=== PATIENT | female | born 1975 | race Caucasian/White ===

== ENCOUNTER 2019-03-30 03:06 | Emergency (ER) | payer BC ==
[2019-03-30 04:18] LABS: Absolute Lymphocytes (CBC) 3.6 K/uL (0.7-4.9); Basophils % 0.4 % (0-1.3); Hematocrit 40.6 % (36.0-45.0); MPV 8.7 fL (7.6-11.3)
[2019-03-30] MEDS ORDERED: MEPERIDINE HCL 25 MG/0.5 ML ONE (04:26)
[2019-03-30] MEDS ORDERED: dexAMETHasone 10 MG/ML VIAL ONE (04:26)
[2019-03-30 04:30] LABS: Albumin 3.8 g/dL (3.4-5.0); Bilirubin Direct 0.1 mg/dL (0-0.2); Bilirubin Total 0.4 mg/dL (0.2-1.0); Potassium 3.4 mmol/L (3.5-5.1); Protein, Total 8.2 g/dL (6.4-8.2)
[2019-03-30] MEDS ORDERED: ONDANSETRON 4 MG/2 ML VIAL ONE (04:58)
--- NOTE | 2019-03-30 06:05 | ER ---
Nurse's Notes [facility] Name: Pauline Lowe Age: 44 yrs Sex: Female : 1975 Arrival Date: 03/30/2019 Time: 03:09 Bed 7 Private MD: Diagnosis: Radiculopathy, lumbar region Presentation: 03/30 03:22 Presenting complaint: Patient states: L hip pain that radiates to LLQ x 2 days. Reports aa1 she recently had an MRI which showed some disc degeneration with bulging and herniation and she was informed to see pain management but they have not been able to see her yet. Also states, "I also have a history of kidney problems and ovarian cysts so I'm not sure of there's more to it than that.". Transition of care: patient was not received from another setting of care. Onset of symptoms was March 27, 2019. Risk Assessment: Do you want to hurt yourself or someone else? Patient reports no desire to harm self or others. Initial Sepsis Screen: Does the patient meet any 2 criteria? No. Patient's initial sepsis screen is negative. Does the patient have a suspected source of infection? No. Patient's initial sepsis screen is negative. Care prior to arrival: None. 03:22 Method Of Arrival: Ambulatory aa1 03:22 Acuity: HEDY 3 aa1 Triage Assessment: 03:27 General: Appears in no apparent distress. uncomfortable, Behavior is calm, cooperative, aa1 appropriate for age. Historical: - Allergies: 03:27 Stadol; aa1 - Home Meds: 03:27 Humira subcutaneous subcutaneous [Active]; Methotrexate Sodium Oral [Active]; aa1 Metoprolol Tartrate Oral [Active]; Wellbutrin Oral [Active]; Metformin Oral [Active]; Hydrochlorothiazide Oral [Active]; pantoprazole oral oral [Active]; - PMHx: 03:27 Diabetes - NIDDM; High Cholesterol; Hypertension; Rheumatoid Arthritis; GERD; Ovarian aa1 cyst; bulging and herniated discs in back; - PSHx: 03:27 Tubal ligation; aa1 - Immunization history:: Flu vaccine is not up to date. - Social history:: Smoking status: Patient uses tobacco products, smokes one-half pack cigarettes per day. - Ebola Screening: : No symptoms or risks identified at this time No symptoms or risks identified at this time. - Family history:: not pertinent. - Hospitalizations: : No recent hospitalization is reported. Screenin:25 Abuse screen: Denies threats or abuse. Denies injuries from another. Nutritional lp1 screening: No deficits noted. Tuberculosis screening: No symptoms or risk factors identified. Fall Risk None identified. Assessment: 03:24 General: Appears in no apparent distress. Behavior is calm, cooperative, appropriate lp1 for age. Pain: Complains of pain in left hip Pain currently is 8 out of 10 on a pain scale. Quality of pain is described as sharp. Pain: Aggravated by increased activity. Neuro: Level of Consciousness is awake, alert, obeys commands, Oriented to person, place, time, situation. Cardiovascular: Patient's skin is warm and dry. Respiratory: Respiratory effort is even, unlabored. GI: No deficits noted. : No deficits noted. EENT: No deficits noted. Derm: Skin is pink, warm \\T\\ dry. Musculoskeletal: Circulation, motion, and sensation intact. Reports pain in left hip. 04:23 Reassessment: Patient and/or family updated on plan of care and expected duration. Pain ea level reassessed. Patient is alert, oriented x 3, equal unlabored respirations, skin warm/dry/pink. Pt taken to CT. 05:02 Reassessment: Patient and/or family updated on plan of care and expected duration. Pain ea level reassessed. Patient is alert, oriented x 3, equal unlabored respirations, skin warm/dry/pink. Pt complaining of nausea, provider notified, medication order obtained. Pt verbalized her pain has decreased. 06:12 Reassessment: Patient and/or family updated on plan of care and expected duration. Pain ea level reassessed. Patient is alert, oriented x 3, equal unlabored respirations, skin warm/dry/pink. Discharge instruction given to patient, verbalized the understanding of instruction. Pt left ED ambulatory accompanied by family. Pt tolerating well. Vital Signs: 03:27 BP 152 / 100; Pulse 86; Resp 18; Temp 97.6; Pulse Ox 100% on R/A; Weight 65.32 kg; aa1 Height 5 ft. 5 in. (165.10 cm) (R); Pain 8/10; 05:02 BP 140 / 90; Pulse 80; Resp 18; Pulse Ox 100% ; ea 03:27 Body Mass Index 23.96 (65.32 kg, 165.10 cm) aa1 ED Course: 03:09 Patient arrived in ED. ds1 03:21 Shaheed Demarco MD is Attending Physician. rn 03:24 Triage completed. aa1 03:25 Patient has correct armband on for positive identification. lp1 03:27 Arm band placed on right wrist. aa1 04:10 Inserted saline lock: 20 gauge in right antecubital area, using aseptic technique. ea Blood collected. 04:23 Caryn Ceja, CLIFF is Primary Nurse. ea 04:28 CT completed. Patient tolerated procedure well. Patient moved to CT. Patient moved back from CT. 04:36 CT Stone Protocol In Process Unspecified. EDMS 06:13 No provider procedures requiring assistance completed. IV discontinued, intact, ea bleeding controlled, No redness/swelling at site. Pressure dressing applied. Administered Medications: 04:15 CANCELLED (Duplicate Order): Demerol 25 mg IVP once; RASS on ADMIN: Combtv4, Very rn Agttd3, Agttd2, Rstlss1, AlertClm0, Drwsy-1, Lt Sdtn-2, Mod Sdtn-3, Dp Sdtn-4, UnArsble-5 04:34 Drug: Decadron - Dexamethasone 10 mg Route: IVP; Site: right antecubital; ea 05:00 Follow up: Response: No adverse reaction ea 04:34 Drug: Demerol 25 mg Route: IVP; Site: right antecubital; ea 05:00 Follow up: Response: No adverse reaction; Pain is decreased ea 05:02 Drug: Zofran 4 mg Route: IVP; Site: right antecubital; ea 05:50 Follow up: Response: No adverse reaction; Nausea is decreased ea Outcome: 06:04 Discharge ordered by . rn 06:13 Discharged to home ambulatory, with family. ea 06:13 Condition: stable 06:13 Discharge instructions given to patient, Instructed on discharge instructions, follow up and referral plans. medication usage, Demonstrated understanding of instructions, follow-up care, medications, Prescriptions given X 3. 06:14 Patient left the ED. ea Signatures: Dispatcher [employer] EDMS Daya Alva RN RN aa1 Dani Medeiros Demi ds1 Shaheed Demarco MD MD rn Rolanda Young RN RN lp1 Caryn Ceja RN RN ea
--- NOTE | 2019-03-30 06:05 | EDPHYS ---
Physician Documentation [facility] Name: Pauline Lowe Age: 44 yrs Sex: Female : 1975 Arrival Date: 03/30/2019 Time: 03:09 Bed 7 Private MD: ED Physician Shaheed Demarco HPI: 03/30 03:59 This 44 yrs old Female presents to ER via Ambulatory with complaints of Hip rn Pain/flank pain. 03:59 The patient complains of pain in the left mid back. The pain radiates to the left leg. rn Onset: The symptoms/episode began/occurred at an unknown time. Modifying factors: The symptoms are alleviated by nothing. the symptoms are aggravated by movement, palpation/percussion. Associated signs and symptoms: Pertinent negatives: diarrhea, dizziness, dysuria, fever, urinary frequency, hematuria, nausea, vomiting. Severity of pain: At its worst the pain was moderate in the emergency department the pain is unchanged. The patient has experienced similar episodes in the past. The patient has not recently seen a physician. Reports had recent MRI of lumbar spine, showed several levels of disc bulge and foraminal disease, reports usually only feels pain to right hip/leg from back, but last few days has been having pain down left leg. No trauma. Reports was lifting/moving lots of tile recently. NO bowel/bladder changes. Reports has also had kidney problems and ovarian cysts so hard to tell what cause is. No hematuria. . Historical: - Allergies: 03:27 Stadol; aa1 - Home Meds: 03:27 Humira subcutaneous subcutaneous [Active]; Methotrexate Sodium Oral [Active]; aa1 Metoprolol Tartrate Oral [Active]; Wellbutrin Oral [Active]; Metformin Oral [Active]; Hydrochlorothiazide Oral [Active]; pantoprazole oral oral [Active]; - PMHx: 03:27 Diabetes - NIDDM; High Cholesterol; Hypertension; Rheumatoid Arthritis; GERD; Ovarian aa1 cyst; bulging and herniated discs in back; - PSHx: 03:27 Tubal ligation; aa1 - Immunization history:: Flu vaccine is not up to date. - Social history:: Smoking status: Patient uses tobacco products, smokes one-half pack cigarettes per day. - Ebola Screening: : No symptoms or risks identified at this time No symptoms or risks identified at this time. - Family history:: not pertinent. - Hospitalizations: : No recent hospitalization is reported. ROS: 03:59 Constitutional: Negative for fever, chills, and weight loss, Eyes: Negative for injury, rn pain, redness, and discharge, Neck: Negative for injury, pain, and swelling, Cardiovascular: Negative for chest pain, palpitations, and edema, Respiratory: Negative for shortness of breath, cough, wheezing, and pleuritic chest pain, Abdomen/GI: Negative for abdominal pain, nausea, vomiting, diarrhea, and constipation, Back: Negative for injury : Negative for injury, bleeding, discharge, and swelling, MS/Extremity: Negative for injury and deformity, Skin: Negative for injury, rash, and discoloration, Neuro: Negative for headache, weakness, numbness, tingling, and seizure. Exam: 03:59 Constitutional: This is a well developed, well nourished patient who is awake, alert, rn and in no acute distress. Head/Face: Normocephalic, atraumatic. Eyes: Pupils equal round and reactive to light, extra-ocular motions intact. Lids and lashes normal. Conjunctiva and sclera are non-icteric and not injected. Cornea within normal limits. Periorbital areas with no swelling, redness, or edema. ENT: MMM Cardiovascular: Regular rate and rhythm. No pulse deficits. Respiratory: No increased work of breathing, no retractions or nasal flaring. Abdomen/GI: soft, non-tender Back: No spinal tenderness. No costovertebral tenderness. Slight pain with ROM MS/ Extremity: Pulses equal, no cyanosis. Neurovascular intact. Full, normal range of motion. Equal circumference. Neuro: Awake and alert, GCS 15, oriented to person, place, time, and situation. Cranial nerves II-XII grossly intact. Motor strength 5/5 in all extremities. Lower extremity reflexes intact and equal. Sensory grossly intact. Cerebellar exam normal. Normal gait. Vital Signs: 03:27 BP 152 / 100; Pulse 86; Resp 18; Temp 97.6; Pulse Ox 100% on R/A; Weight 65.32 kg; aa1 Height 5 ft. 5 in. (165.10 cm) (R); Pain 8/10; 05:02 BP 140 / 90; Pulse 80; Resp 18; Pulse Ox 100% ; ea 03:27 Body Mass Index 23.96 (65.32 kg, 165.10 cm) aa1 MDM: 03:21 Patient medically screened. rn 06:00 Differential diagnosis: nephrolithiasis, pyelonephritis, UTI, diverticulitis. Data rn reviewed: vital signs, nurses notes, lab test result(s), radiologic studies, CT scan, and as a result, I will discharge patient. Counseling: I had a detailed discussion with the patient and/or guardian regarding: the historical points, exam findings, and any diagnostic results supporting the discharge/admit diagnosis, lab results, radiology results, the need for outpatient follow up, to return to the emergency department if symptoms worsen or persist or if there are any questions or concerns that arise at home. Response to treatment: the patient's symptoms have mildly improved after treatment, and as a result, I will discharge patient. Special discussion: I discussed with the patient/guardian in detail that at this point there is no indication for admission to the hospital. It is understood, however, that if the symptoms persist or worsen the patient needs to return immediately for re-evaluation. ED course: NO acute findings on CT abdomen. . 03/30 03:51 Order name: Basic Metabolic Panel; Complete Time: 05:57 rn 03/30 03:51 Order name: CBC with Diff; Complete Time: 05:57 rn 03/30 03:51 Order name: Creatinine for Radiology; Complete Time: 05:57 rn 03/30 03:51 Order name: Hepatic Function; Complete Time: 05:57 rn 03/30 03:51 Order name: Lipase; Complete Time: 05:57 rn 03/30 03:51 Order name: IV Saline Lock; Complete Time: 04:35 rn 03/30 03:51 Order name: Labs collected and sent; Complete Time: 04:35 rn 03/30 03:51 Order name: CT Stone Protocol rn Administered Medications: 04:15 CANCELLED (Duplicate Order): Demerol 25 mg IVP once; RASS on ADMIN: Combtv4, Very rn Agttd3, Agttd2, Rstlss1, AlertClm0, Drwsy-1, Lt Sdtn-2, Mod Sdtn-3, Dp Sdtn-4, UnArsble-5 04:34 Drug: Decadron - Dexamethasone 10 mg Route: IVP; Site: right antecubital; ea 05:00 Follow up: Response: No adverse reaction ea 04:34 Drug: Demerol 25 mg Route: IVP; Site: right antecubital; ea 05:00 Follow up: Response: No adverse reaction; Pain is decreased ea 05:02 Drug: Zofran 4 mg Route: IVP; Site: right antecubital; ea 05:50 Follow up: Response: No adverse reaction; Nausea is decreased ea Disposition: 03/30/19 06:04 Discharged to Home. Impression: Radiculopathy, lumbar region. - Condition is Stable. - Discharge Instructions: Lumbosacral Radiculopathy, Back Exercises. - Prescriptions for Tylenol- Codeine #3 300-30 mg Oral Tablet - take 1 tablet by ORAL route every 6 hours As needed; 15 tablet. Cyclobenzaprine 10 mg Oral Tablet - take 1 tablet by ORAL route every 8 hours As needed; 20 tablet. Medrol (Mahendra) 4 mg Oral Tablets, Dose Pack - take 1 tablet by ORAL route as directed - follow package instructions; 1 packet. - Medication Reconciliation Form, Thank You Letter, Antibiotic Education, Prescription Opioid Use form. - Follow up: Private Physician; When: As needed; Reason: Recheck today's complaints, Re-evaluation by your physician. - Problem is an ongoing problem. - Symptoms have improved. Signatures: Dispatcher [employer] EDDaya Schwarz, RN RN aa1 Shaheed Demarco MD MD rn Pena, Laura, RN RN lp1 Caryn Ceja RN CLIFF [place] Corrections: (The following items were deleted from the chart) 03:53 03:51 Urine Test ordered. rn rn 04:15 04:15 Demerol 25 mg IVP once; RASS on ADMIN: Combtv4, Very Agttd3, Agttd2, Rstlss1, rn AlertClm0, Drwsy-1, Lt Sdtn-2, Mod Sdtn-3, Dp Sdtn-4, UnArsble-5 ordered. rn 06:14 06:04 03/30/2019 06:04 Discharged to Home. Impression: Radiculopathy, lumbar region. ea Condition is Stable. Forms are Medication Reconciliation Form, Thank You Letter, Antibiotic Education, Prescription Opioid Use. Follow up: Private Physician; When: As needed; Reason: Recheck today's complaints, Re-evaluation by your physician. Problem is an ongoing problem. Symptoms have improved. rn
[2019-03-30 06:22] VITALS: TEMP 97.6; O2SAT 100
[2019-03-30 06:23] VITALS: BP 140/90
--- NOTE | 2019-03-30 11:09 | RAD REPORT ---
EXAM DESCRIPTION: CT - Stone Protocol - 03/30/2019 7:01 am CLINICAL HISTORY: The patient is 44 years old and is Female; left flank pain TECHNIQUE: Axial computed tomography images of the abdomen and pelvis without intravenous contrast. Sagittal and coronal reformatted images were created and reviewed. This CT exam was performed usi ng one or more of the following dose reduction techniques: automated exposure control, adjustment o f the mA and/or kV according to patient size, and/or use of iterative reconstruction technique. COMPARISON: No relevant prior studies available. FINDINGS: LUNG BASES: Unremarkable. No mass. No consolidation. ABDOMEN: LIVER: Homogeneous without focal mass. GALLBLADDER AND BILE DUCTS: The gallbladder is contracted. PANCREAS: Unremarkable. No ductal dilation. SPLEEN: Unremarkable. ADRENALS: Unremarkable. No mass. KIDNEYS AND URETERS: No obstructing stones. No hydronephrosis. No perinephric fluid. STOMACH AND BOWEL: The stomach is distended with food contents. The small bowel is normal in jose iber. Stool is present throughout colon. There is no mucosal thickening or evidence of bowel obstruct ion. PELVIS: APPENDIX: The appendix is normal in caliber without surrounding inflammation. BLADDER: Unremarkable. No stones. REPRODUCTIVE: Unremarkable as visualized. ABDOMEN and PELVIS: INTRAPERITONEAL SPACE: Unremarkable. No free air. No significant fluid collection. BONES/JOINTS: No acute fracture. SOFT TISSUES: The soft tissues are normal. VASCULATURE: Unremarkable. No abdominal aortic aneurysm. LYMPH NODES: Unremarkable. No enlarged lymph nodes. IMPRESSION: No acute findings on this noncontrasted CT of the abdomen and pelvis to explain the jelani ent's symptoms. Electronically signed by: Charlene Ferguson MD 03/30/2019 5:04 AM CHARGE ACCOUNT AUTHORIZER Due to temporary technical issues with the PACS/Fluency reporting system, reports are being signed b y the in house radiologist as a courtesy to ensure prompt reporting. The interpreting radiologist is fully responsible for the content of the report.
== END 2019-03-30 06:14 | disposition home or self-care (01) ==
LOC: ER 03:06
DX: M54.16 Radiculopathy, lumbar region (principal); F17.210 Nicotine dependence, cigarettes, uncomplicated; I10 Essential (primary) hypertension; E11.9 Type 2 diabetes mellitus without complications; E78.00 Pure hypercholesterolemia, unspecified; Z79.4 Long term (current) use of insulin; Z88.5 Allergy status to narcotic agent
CPT/HCPCS: 85025; 80048; 36415; 80076; 83690; 76377; 74176; 96375; 96374; 99284; J1100; J2175; J2405

== ENCOUNTER 2019-08-18 14:19 | Emergency (ER) | payer BC ==
[2019-08-18 15:40] LABS: Absolute Lymphocytes (CBC) 2.3 K/uL (0.7-4.9); Basophils % 0.3 % (0-1.3); Hematocrit 37.9 % (36.0-45.0); Lymphocytes % 32.6 % (15.3-44.8); RBC Red Blood Cell Count 4.37 M/uL (3.86-4.86)
[2019-08-18 15:44] LABS: Protime INR 1.03
[2019-08-18 16:06] LABS: ALT/SGPT 15 U/L (12-78); AST/SGOT 13 U/L (15-37); Albumin 3.6 g/dL (3.4-5.0); Alkaline Phosphatase 58 U/L (45-117); BUN Blood Urea Nitrogen 9 mg/dL (7-18); Bicarbonate 26 mmol/L (21-32); Bilirubin Direct 0.1 mg/dL (0-0.2); Bilirubin Total 0.5 mg/dL (0.2-1.0); Glucose Level 91 mg/dL (74-106); Potassium 3.5 mmol/L (3.5-5.1); Protein, Total 7.3 g/dL (6.4-8.2); Sodium Level 138 mmol/L (136-145); Troponin (Emerg Dept Use Only) < 0.02 ng/mL (0.0-0.045)
--- NOTE | 2019-08-18 17:39 | RAD REPORT ---
EXAM DESCRIPTION: RAD - Chest Single View - 08/18/2019 3:55 pm CLINICAL HISTORY: CHEST PAIN Chest pain. COMPARISON: Chest Pa And Lat (2 Views) dated 08/11/2017; CHEST PA AND LAT 2 VIEW dated 11/23/2014; ABDO MEN ACUTE SERIES dated 01/24/2001 FINDINGS: Portable technique limits examination quality. The lungs are grossly clear. The heart is normal in size. No displaced fractures. IMPRESSION: No acute intrathoracic process suspected.
--- NOTE | 2019-08-18 19:19 | ER ---
Nurse's Notes [facility] Name: Pauline Lowe Age: 44 yrs Sex: Female : 1975 Arrival Date: 08/18/2019 Time: 14:21 Bed 23 Private MD: Diagnosis: Chest pain, unspecified Presentation: 08/17 14:35 Chief complaint: Patient states: "I woke up with a really tightness in my chest around ca1 1100 today" Reports changes in taste buds. Denies cough, congestion and fever. Coronavirus screen: Patient denies fever greater than 100.4F, cough, shortness of breath, or difficulty breathing. Proceed with normal triage process. Ebola Screen: Patient negative for fever greater than or equal to 101.5 degrees Fahrenheit, and additional compatible Ebola Virus Disease symptoms Patient denies exposure to infectious person. Patient denies travel to an Ebola-affected area in the 21 days before illness onset. No symptoms or risks identified at this time. Initial Sepsis Screen: Does the patient meet any 2 criteria? No. Patient's initial sepsis screen is negative. Does the patient have a suspected source of infection? No. Patient's initial sepsis screen is negative. Risk Assessment: Do you want to hurt yourself or someone else? Patient reports no desire to harm self or others. Onset of symptoms was August 18, 2019 at 11:00. 14:35 Method Of Arrival: Ambulatory ca1 14:35 Acuity: HEDY 3 ca1 Historical: - Allergies: 14:39 Stadol; ca1 - PMHx: 14:39 bulging and herniated discs in back; Diabetes - NIDDM; GERD; High Cholesterol; ca1 Hypertension; Ovarian cyst; Rheumatoid Arthritis; - PSHx: 14:39 Tubal ligation; ca1 - Immunization history:: Adult Immunizations up to date, Flu vaccine is not up to date. - Social history:: Smoking status: Patient reports the use of cigarette tobacco products, 1 cigarette a day. Screenin:45 Abuse screen: Denies threats or abuse. Nutritional screening: No deficits noted. rb1 Tuberculosis screening: No symptoms or risk factors identified. Fall Risk None identified. Assessment: 14:45 General: Appears in no apparent distress. comfortable, Behavior is calm, cooperative, rb1 Denies fever. Pain: Complains of pain in chest Pain does not radiate. Pain currently is 5 out of 10 on a pain scale. Quality of pain is described as tightness Pain began 1100 this morning. Neuro: Level of Consciousness is awake, alert, obeys commands, Oriented to person, place, time, situation. Cardiovascular: Capillary refill < 3 seconds is brisk in bilateral fingers. Respiratory: Airway is patent Respiratory effort is even, unlabored, Respiratory pattern is regular, symmetrical, Denies cough. GI: No signs and/or symptoms were reported involving the gastrointestinal system. : No signs and/or symptoms were reported regarding the genitourinary system. Derm: Skin is pink, warm \\T\\ dry. 15:35 Reassessment: Patient appears in no apparent distress at this time. No changes from rb1 previously documented assessment. 16:33 Reassessment: Patient appears in no apparent distress at this time. Patient and/or rb1 family updated on plan of care and expected duration. Pain level reassessed. Patient is alert, oriented x 3, equal unlabored respirations, skin warm/dry/pink. 17:30 Reassessment: Patient appears in no apparent distress at this time. No changes from rb1 previously documented assessment. 18:28 Reassessment: Patient appears in no apparent distress at this time. Patient and/or rb1 family updated on plan of care and expected duration. Pain level reassessed. Patient is alert, oriented x 3, equal unlabored respirations, skin warm/dry/pink. 19:15 General: Appears in no apparent distress. Behavior is calm, cooperative. Pain: Denies ea pain. Neuro: Level of Consciousness is awake, alert, obeys commands, Oriented to person, place, time, situation. Cardiovascular: Patient's skin is warm and dry. Respiratory: Airway is patent Respiratory effort is even, unlabored, Respiratory pattern is regular, symmetrical. Derm: Skin is pink, warm \\T\\ dry. 19:28 Reassessment: Patient and/or family updated on plan of care and expected duration. Pain ea level reassessed. Patient is alert, oriented x 3, equal unlabored respirations, skin warm/dry/pink. Discharge instruction given to patient, verbalized the understanding of instruction. Pt left ED ambulatory tolerating well. Vital Signs: 14:35 BP 125 / 93; Pulse 77; Resp 18 S; Temp 98(TE); Pulse Ox 100% on R/A; Weight 68.04 kg ca1 (R); Height 5 ft. 5 in. (165.10 cm) (R); Pain 0/10; 15:54 BP 131 / 77; Pulse 66; Resp 12; Pulse Ox 99% ; mh5 16:30 BP 112 / 82; Pulse 64; Resp 16; Pulse Ox 98% on R/A; rb1 17:01 BP 112 / 76; Pulse 68; Resp 15; Pulse Ox 100% on R/A; mh5 18:00 BP 120 / 79; Pulse 69; Resp 15; Pulse Ox 100% on R/A; rb1 19:16 BP 100 / 76; Pulse 68; Resp 16; Pulse Ox 99% on R/A; ea 14:35 Body Mass Index 24.96 (68.04 kg, 165.10 cm) ca1 ED Course: 14:21 Patient arrived in ED. fj1 14:38 Triage completed. ca1 14:39 Arm band placed on right wrist. ca1 14:43 Shavon Espinoza, RN is Primary Nurse. rb1 14:45 Patient maintains SpO2 saturation greater than 95% on room air. rb1 14:49 Uriel Jewell MD is Attending Physician. kdr 15:33 Patient has correct armband on for positive identification. Placed in gown. Bed in low mh5 position. Call light in reach. Side rails up X 1. Warm blanket given. resource recovery specialist on. Pulse ox on. NIBP on. 15:33 Initial lab(s) drawn, by mt, sent to lab. Inserted saline lock: 22 gauge in right upper mh5 arm, using aseptic technique. Blood collected. 15:34 Basic Metabolic Panel Sent. 5 15:34 CBC with Diff Sent. mh5 15:34 LFT's Sent. 5 15:34 Magnesium Sent. 5 15:35 PT-INR Sent. 5 15:35 Troponin (emerg Dept Use Only) Sent. mh5 15:56 XRAY Chest (1 view) In Process Unspecified. EDMS 19:25 IV discontinued, intact, bleeding controlled, No redness/swelling at site. Pressure ea dressing applied. 19:30 No provider procedures requiring assistance completed. ea Administered Medications: No medications were administered Outcome: 19:18 Discharge ordered by . kdr 19:30 Discharged to home ambulatory. ea 19:30 Condition: stable 19:30 Discharge instructions given to patient, Instructed on discharge instructions, follow up and referral plans. medication usage, Demonstrated understanding of instructions, follow-up care, medications, Prescriptions given X 1. 19:31 Patient left the ED. ea Signatures: Dispatcher [employer] EDMS Uriel Jewell MD MD kdr Barber, Rebecca, RN RN rb1 Anne Berrios [facility] Caryn Ceja RN RN Neisha Tijerina RN RN ca1 Raymond Baeza [facility]
--- NOTE | 2019-08-18 19:19 | EDPHYS ---
Physician Documentation [facility] Name: Pauline Lowe Age: 44 yrs Sex: Female : 1975 Arrival Date: 08/18/2019 Time: 14:21 Bed 23 Private MD: ED Physician Uriel Jewell HPI: 08/17 18:44 This 44 yrs old Female presents to ER via Ambulatory with complaints of Chest kdr Tightness, Headache, FUNNY TASTE IN MOUTH. 18:44 The patient or guardian reports chest pain that is located primarily in the substernal kdr area, anterior chest wall, left. Onset: this morning. The pain does not radiate. Associated signs and symptoms: The patient has no apparent associated signs or symptoms. The chest pain is described as aching, burning, dull. Severity of pain: At its worst the pain was mild in the emergency department the pain is unchanged. The patient has not experienced similar symptoms in the past. The patient has not recently seen a physician. 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 - Social history:: Smoking status: Patient reports the use of cigarette tobacco products, 1 cigarette a day. ROS: 18:52 Constitutional: Negative for fever, chills, and weight loss, Eyes: Negative for injury, kdr pain, redness, and discharge, ENT: Negative for injury, pain, and discharge, Neck: Negative for injury, pain, and swelling, Respiratory: Negative for shortness of breath, cough, wheezing, and pleuritic chest pain, Abdomen/GI: Negative for abdominal pain, nausea, vomiting, diarrhea, and constipation, Back: Negative for injury and pain, : Negative for injury, bleeding, discharge, and swelling, MS/Extremity: Negative for injury and deformity, Skin: Negative for injury, rash, and discoloration, Neuro: Negative for headache, weakness, numbness, tingling, and seizure activity. Psych: Negative for depression, anxiety, suicide ideation, homicidal ideation, and hallucinations, Allergy/Immunology: Negative for hives, rash, and allergies, Endocrine: Negative for neck swelling, polydipsia, polyuria, polyphagia, and marked weight changes, Hematologic/Lymphatic: Negative for swollen nodes, abnormal bleeding, and unusual bruising. 18:52 Cardiovascular: Positive for chest pain, Negative for edema, orthopnea, palpitations, paroxysmal nocturnal dyspnea, acute changes. Exam: 18:52 Constitutional: This is a well developed, well nourished patient who is awake, alert, kdr and in no acute distress. Head/Face: Normocephalic, atraumatic. Eyes: Pupils equal round and reactive to light, extra-ocular motions intact. Lids and lashes normal. Conjunctiva and sclera are non-icteric and not injected. Cornea within normal limits. Periorbital areas with no swelling, redness, or edema. Neck: Trachea midline, no thyromegaly or masses palpated, and no cervical lymphadenopathy. Supple, full range of motion without nuchal rigidity, or vertebral point tenderness. No Meningismus. Chest/axilla: Normal chest wall appearance and motion. Nontender with no deformity. No lesions are appreciated. Cardiovascular: Regular rate and rhythm with a normal S1 and S2. No gallops, murmurs, or rubs. Normal PMI, no JVD. No pulse deficits. Respiratory: Lungs have equal breath sounds bilaterally, clear to auscultation and percussion. No rales, rhonchi or wheezes noted. No increased work of breathing, no retractions or nasal flaring. Abdomen/GI: Soft, non-tender, with normal bowel sounds. No distension or tympany. No guarding or rebound. No evidence of tenderness throughout. Back: No spinal tenderness. No costovertebral tenderness. Full range of motion. Skin: Warm, dry with normal turgor. Normal color with no rashes, no lesions, and no evidence of cellulitis. MS/ Extremity: Pulses equal, no cyanosis. Neurovascular intact. Full, normal range of motion. Neuro: Awake and alert, GCS 15, oriented to person, place, time, and situation. Cranial nerves II-XII grossly intact. Motor strength 5/5 in all extremities. Sensory grossly intact. Cerebellar exam normal. Normal gait. Psych: Awake, alert, with orientation to person, place and time. Behavior, mood, and affect are within normal limits. Vital Signs: 14:35 BP 125 / 93; Pulse 77; Resp 18 S; Temp 98(TE); Pulse Ox 100% on R/A; Weight 68.04 kg ca1 (R); Height 5 ft. 5 in. (165.10 cm) (R); Pain 0/10; 15:54 BP 131 / 77; Pulse 66; Resp 12; Pulse Ox 99% ; mh5 16:30 BP 112 / 82; Pulse 64; Resp 16; Pulse Ox 98% on R/A; rb1 17:01 BP 112 / 76; Pulse 68; Resp 15; Pulse Ox 100% on R/A; mh5 18:00 BP 120 / 79; Pulse 69; Resp 15; Pulse Ox 100% on R/A; rb1 19:16 BP 100 / 76; Pulse 68; Resp 16; Pulse Ox 99% on R/A; ea 14:35 Body Mass Index 24.96 (68.04 kg, 165.10 cm) ca1 MDM: 18:52 Data reviewed: vital signs, nurses notes, lab test result(s), EKG, radiologic studies. kdr Counseling: I had a detailed discussion with the patient and/or guardian regarding: the historical points, exam findings, and any diagnostic results supporting the discharge/admit diagnosis, lab results, radiology results, the need for outpatient follow up, for definitive care. 19:18 Patient medically screened. [facility] 08/17 15:01 Order name: Basic Metabolic Panel; Complete Time: 17:03 [facility] 08/17 15:01 Order name: CBC with Diff; Complete Time: 17:03 [facility] 08/17 15:01 Order name: LFT's; Complete Time: 17:03 [facility] 08/17 15:01 Order name: Magnesium; Complete Time: 17:03 [facility] 08/17 15:01 Order name: PT-INR; Complete Time: 17:03 [facility] 08/17 15:01 Order name: Troponin (emerg Dept Use Only); Complete Time: 17:03 [facility] 08/17 15:01 Order name: XRAY Chest (1 view); Complete Time: 18:11 [facility] 08/17 15:01 Order name: EKG; Complete Time: 15:03 [facility] 08/17 15:01 Order name: Cardiac monitoring; Complete Time: 15:35 [facility] 08/17 15:01 Order name: EKG - Nurse/Tech; Complete Time: 15:47 kdr 08/17 15:01 Order name: IV Saline Lock; Complete Time: 15:35 kdr 08/17 15:01 Order name: Labs collected and sent; Complete Time: 15:35 kdr 08/17 18:11 Order name: Troponin (emerg Dept Use Only); Complete Time: 19:17 kdr 08/17 15:01 Order name: O2 Per Protocol; Complete Time: 17:06 kdr 08/17 15:01 Order name: O2 Sat Monitoring; Complete Time: 17:06 kdr Administered Medications: No medications were administered Disposition: 08/18/19 19:18 Discharged to Home. Impression: Chest pain, unspecified. - Condition is Stable. - Discharge Instructions: Nonspecific Chest Pain, [id number]. - Prescriptions for Tramadol 50 mg Oral Tablet - take 1 tablet by ORAL route every 8 hours as needed; 12 tablet. - Medication Reconciliation Form, Thank You Letter, Prescription Opioid Use form. - Follow up: Private Physician; When: 2 - 3 days; Reason: If symptoms return, Further diagnostic work-up, Recheck today's complaints, Continuance of care, Re-evaluation by your physician. - Problem is new. - Symptoms have improved. Signatures: Dispatcher [employer] [facility] Uriel Jewell MD MD kdr Antunez, Elena, RN RN ea Acob, Cheryl, RN RN ca1 Corrections: (The following items were deleted from the chart) 18:27 17:05 TROPONIN (EMERG DEPT USE ONLY)+C.LAB.BRZ ordered. [facility] 19:31 19:18 08/18/2019 19:18 Discharged to Home. Impression: Chest pain, unspecified. ea Condition is Stable. Forms are Medication Reconciliation Form, Thank You Letter, Antibiotic Education, Prescription Opioid Use. Follow up: Private Physician; When: 2 - 3 days; Reason: If symptoms return, Further diagnostic work-up, Recheck today's complaints, Continuance of care, Re-evaluation by your physician. Problem is new. Symptoms have improved. kdr
[2019-08-18 20:05] VITALS: TEMP 98
[2019-08-18 20:11] VITALS: BP 100/76; O2SAT 99
--- NOTE | 2019-08-19 11:23 | EKG ---
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
== END 2019-08-18 19:31 | disposition home or self-care (01) ==
LOC: ER 14:19
DX: R07.9 Chest pain, unspecified (principal); I10 Essential (primary) hypertension; Z88.5 Allergy status to narcotic agent
CPT/HCPCS: 36415; 71045; 80048; 80076; 83735; 84484; 85025; 85610; 93005; 99285

== ENCOUNTER 2019-08-20 21:16 | Emergency (ER) | payer BC ==
[2019-08-20] MEDS ORDERED: NA CHLORIDE 0.9% 1,000 ML ONE (21:39)
[2019-08-20 21:48] LABS: Absolute Lymphocytes (CBC) 2.8 K/uL (0.7-4.9); Basophils % 0.5 % (0-1.3); Hematocrit 39.1 % (36.0-45.0); Lymphocytes % 37.5 % (15.3-44.8); MPV 8.1 fL (7.6-11.3); RBC Red Blood Cell Count 4.43 M/uL (3.86-4.86)
--- NOTE | 2019-08-20 21:58 | RAD REPORT ---
EXAM DESCRIPTION: Alhaji Single View08/20/2019 9:46 pm CLINICAL HISTORY: Palpitations COMPARISON: none FINDINGS: The lungs appear clear of acute infiltrate. The heart is normal size IMPRESSION: No acute abnormalities displayed
[2019-08-20 22:15] LABS: BUN Blood Urea Nitrogen 20 mg/dL (7-18); Bicarbonate 27 mmol/L (21-32); Glucose Level 104 mg/dL (74-106); Potassium 3.4 mmol/L (3.5-5.1); Sodium Level 137 mmol/L (136-145); Troponin (Emerg Dept Use Only) < 0.02 ng/mL (0.0-0.045)
--- NOTE | 2019-08-20 22:46 | ER ---
[facility] Name: Pauline Lowe Age: 44 yrs Sex: Female : 1975 Arrival Date: 08/20/2019 Time: 21:18 Bed 16 Private MD: Diagnosis: Tachycardia, unspecified;Dehydration Presentation: 08/19 21:29 Chief complaint: Patient states: "[place] heart is raising and pounding today. An episode ca1 of low BP at 99/80. Reports feeling hot flushes that is constant but doesn't feel like fever. Around 1-2pm today, felt like she was going to pass out" Denies cough and fever. Denies chest pain. Coronavirus screen: Patient denies fever greater than 100.4F, cough, shortness of breath, or difficulty breathing. Proceed with normal triage process. Ebola Screen: Patient negative for fever greater than or equal to 101.5 degrees Fahrenheit, and additional compatible Ebola Virus Disease symptoms Patient denies exposure to infectious person. Patient denies travel to an Ebola-affected area in the 21 days before illness onset. No symptoms or risks identified at this time. Initial Sepsis Screen: Does the patient meet any 2 criteria? No. Patient's initial sepsis screen is negative. Does the patient have a suspected source of infection? No. Patient's initial sepsis screen is negative. Risk Assessment: Do you want to hurt yourself or someone else? Patient reports no desire to harm self or others. Onset of symptoms was August 20, 2019. 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 - Social history:: Smoking status: Patient reports the use of cigarette tobacco products, denies chronic smoking, but will smoke occasionally. - Family history:: not pertinent. - Hospitalizations: : No recent hospitalization is reported. Screenin:30 Abuse screen: Denies threats or abuse. Denies injuries from another. Nutritional rr5 screening: No deficits noted. Tuberculosis screening: No symptoms or risk factors identified. Fall Risk IV access (20 points). Total [place] Fall Scale indicates No Risk (0-24 pts). Assessment: 21:30 General: Appears in no apparent distress. comfortable, Behavior is calm, cooperative, rr5 appropriate for age. 21:30 Pain: Denies pain. Neuro: Level of Consciousness is awake, alert, obeys commands, rr5 Oriented to person, place, time, situation. Cardiovascular: Reports palpitations, heart pounding Capillary refill < 3 seconds Patient's skin is warm and dry. Respiratory: Airway is patent Respiratory effort is even, unlabored, Respiratory pattern is regular, symmetrical. GI: No signs and/or symptoms were reported involving the gastrointestinal system. : No signs and/or symptoms were reported regarding the genitourinary system. EENT: No signs and/or symptoms were reported regarding the EENT system. Derm: Skin is intact, is healthy with good turgor, Skin temperature is warm. Musculoskeletal: Circulation, motion, and sensation intact. Capillary refill < 3 seconds. 22:20 Reassessment: Patient appears in no apparent distress at this time. No changes from rr5 previously documented assessment. Patient is alert, oriented x 3, equal unlabored respirations, skin warm/dry/pink. 23:03 Reassessment: Patient appears in no apparent distress at this time. Patient is alert, rr5 oriented x 3, equal unlabored respirations, skin warm/dry/pink. discharge instruction given and explained without complaints made. Vital Signs: 21:29 BP 146 / 98; Pulse 121; Resp 17 S; Temp 97.6(TE); Pulse Ox 100% on R/A; Weight 68.04 kg ca1 (R); Height 5 ft. 5 in. (165.10 cm) (R); 22:05 BP 128 / 89; Pulse 95; Resp 13; Pulse Ox 99% ; rr5 23:02 BP 128 / 93; Pulse 92; Resp 15; Pulse Ox 100% ; rr5 21:29 Body Mass Index 24.96 (68.04 kg, 165.10 cm) ca1 ED Course: 21:18 Patient arrived in ED. ag3 21:22 Shaheed Demarco MD is Attending Physician. rn 21:30 Patient has correct armband on for positive identification. Placed in gown. Bed in low rr5 position. Call light in reach. 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 Pulse ox on. NIBP on. 21:30 No provider procedures requiring assistance completed. rr5 21:32 Triage completed. ca1 21:33 Arm band placed on right wrist. ca1 21:35 Camron Zarate, RN is Primary Nurse. rr5 21:40 Inserted saline lock: 20 gauge in left forearm, using aseptic technique. Blood rr5 collected. 21:46 EKG done, by ED staff, reviewed by Shaheed Demarco MD. rr5 21:47 XRAY Chest (1 view) In Process Unspecified. EDMS 23:03 IV discontinued, intact, bleeding controlled, No redness/swelling at site. Pressure rr5 dressing applied. Administered Medications: 21:40 Drug: NS 0.9% 1000 ml Route: IV; Rate: 1000 ml; Site: left forearm; rr5 22:27 Follow up: Response: No adverse reaction; IV Status: Completed infusion; IV Intake: rr5 1000ml Intake: 22:27 IV: 1000ml; Total: 1000ml. rr5 Outcome: 22:45 Discharge ordered by . rn 23:03 Discharged to home ambulatory. rr5 23:03 Condition: stable 23:03 Discharge instructions given to patient, Instructed on discharge instructions, follow up and referral plans. Demonstrated understanding of instructions, follow-up care. 23:04 Patient left the ED. rr5 Signatures: Dispatcher [employer] EDFL Shaheed Demarco MD MD rn Gomez, Alice ag3 Camron Zarate, RN RN rr5 Neisha Vizcarra RN RN ca1
--- NOTE | 2019-08-20 22:46 | EDPHYS ---
Physician Documentation [facility] Name: Pauline Lowe Age: 44 yrs Sex: Female : 1975 Arrival Date: 08/20/2019 Time: 21:18 Bed 16 Private MD: ED Physician Shaheed Demarco HPI: 08/19 22:39 This 44 yrs old Female presents to ER via Ambulatory with complaints of rn ABNORMAL HEART RATE. 22:39 The patient presents with a history of heart racing. Context: The symptoms occur at rn rest. Onset: The symptoms/episode began/occurred yesterday. Duration: The patient or guardian reports multiple episodes, that are intermittent. Modifying factors: The symptoms are aggravated by nothing. The symptoms are alleviated by nothing. Severity of symptoms: At their worst the symptoms were mild in the emergency department the symptoms are unchanged. The patient has experienced similar episodes in the past. Reports for last 2 days has felt heart pounding and racing, seen here yesterday for chest pain, no acute findings so discharged, no further pain, but feels heart racing. Has had trouble with sinus tachycardia in past, put on metoprolol after negative cardiac w/u by Dr. Cates. Denies fever/sob/cough/vomiting/diarrhea/abd pain. No bleeding. Reports was doing chores around the house, was standing, and got lightheaded, did not pass out, checked BP and was 90s systolic and HR 110s, was worried to take her nighttime metoprolol so came in for eval. . 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 - Social history:: Smoking status: Patient reports the use of cigarette tobacco products, denies chronic smoking, but will smoke occasionally. - Family history:: not pertinent. - Hospitalizations: : No recent hospitalization is reported. ROS: 22:39 Constitutional: Negative for fever, chills, and weight loss, Eyes: Negative for injury, rn pain, redness, and discharge, Neck: Negative for injury, pain, and swelling, Cardiovascular: Negative for chest pain, and edema, Respiratory: Negative for shortness of breath, cough, wheezing, and pleuritic chest pain, Abdomen/GI: Negative for abdominal pain, nausea, vomiting, diarrhea, and constipation, MS/Extremity: Negative for injury and deformity, Skin: Negative for injury, rash, and discoloration, Neuro: Negative for headache, weakness, numbness, tingling, and seizure. Exam: 21:46 ECG was reviewed by the Attending Physician. rn 22:39 Constitutional: This is a well developed, well nourished patient who is awake, alert, rn and in no acute distress. Head/Face: Normocephalic, atraumatic. Eyes: Pupils equal round and reactive to light, extra-ocular motions intact. Lids and lashes normal. Conjunctiva and sclera are non-icteric and not injected. Cornea within normal limits. Periorbital areas with no swelling, redness, or edema. Cardiovascular: Tachycardic, regular, intact distal pulses, no murmur Respiratory: Lungs have equal breath sounds bilaterally, clear to auscultation. No increased work of breathing, no retractions or nasal flaring. Abdomen/GI: soft, non-tender Skin: Warm, dry MS/ Extremity: Pulses equal, no cyanosis. Neurovascular intact. Full, normal range of motion. Equal circumference. Neuro: Awake and alert, GCS 15 Vital Signs: 21:29 BP 146 / 98; Pulse 121; Resp 17 S; Temp 97.6(TE); Pulse Ox 100% on R/A; Weight 68.04 kg ca1 (R); Height 5 ft. 5 in. (165.10 cm) (R); 22:05 BP 128 / 89; Pulse 95; Resp 13; Pulse Ox 99% ; rr5 23:02 BP 128 / 93; Pulse 92; Resp 15; Pulse Ox 100% ; rr5 21:29 Body Mass Index 24.96 (68.04 kg, 165.10 cm) ca1 MDM: 21:22 Patient medically screened. rn 22:43 Differential diagnosis: arrythmia, dehydration, stress disorder. Data reviewed: vital rn signs, nurses notes, lab test result(s), EKG, radiologic studies, plain films, and as a result, I will discharge patient. Counseling: I had a detailed discussion with the patient and/or guardian regarding: the historical points, exam findings, and any diagnostic results supporting the discharge/admit diagnosis, lab results, radiology results, the need for outpatient follow up, to return to the emergency department if symptoms worsen or persist or if there are any questions or concerns that arise at home. Response to treatment: the patient's symptoms have markedly improved after treatment, patient is well hydrated. and as a result, I will discharge patient. Special discussion: I discussed with the patient/guardian in detail that at this point there is no indication for admission to the hospital. It is understood, however, that if the symptoms persist or worsen the patient needs to return immediately for re-evaluation. Based on the history and exam findings, there is no indication for further emergent testing or inpatient evaluation. I discussed with the patient/guardian the need to see the primary care provider for further evaluation of the symptoms. ED course: PT heart rate improved to 90s with fluids, no acute findings in bloodwork, added thyroid studies and ddimer as well as repeated troponin in addition to yesterdays testing, as well as neg cxr. Will dc home with rehydration and will f/u with pcp. Has had cardiac w/u for this in past, anticipate maybe propranolol in her future.. 08/19 20: Order name: CBC with Diff; Complete Time: : rn 08/19 20: Order name: Basic Metabolic Panel; Complete Time: : rn 08/19 20: Order name: D-Dimer; Complete Time: :08/19: Order name: TSH; Complete Time: :08/19: Order name: T4 Free; Complete Time: :08/19: Order name: Troponin (emerg Dept Use Only); Complete Time: : rn 08/19 20: Order name: IV Start; Complete Time: : rn 08/19 20: Order name: EKG; Complete Time: : rn 08/19 20: Order name: EKG - Nurse/Tech; Complete Time: : rn 08/19 21: Order name: XRAY Chest (1 view); Complete Time: : rn EC:46 Rate is 110 beats/min. Rhythm is regular. QRS [place] is Normal. [place] interval is normal. rn QRS interval is normal. QT interval is normal. No Q waves. T waves are Normal. No ST changes noted. Clinical impression: Sinus tachycardia. Interpreted by me. Reviewed by me. Administered Medications: 21:40 Drug: NS 0.9% 1000 ml Route: IV; Rate: 1000 ml; Site: left forearm; rr5 22:27 Follow up: Response: No adverse reaction; IV Status: Completed infusion; IV Intake: rr5 1000ml Disposition: 08/20/19 22:45 Discharged to Home. Impression: Tachycardia, unspecified, Dehydration. - Condition is Stable. - Discharge Instructions: Dehydration, Adult, Near-Syncope, Sinus Tachycardia. - Medication Reconciliation Form, Thank You Letter, Antibiotic Education, Prescription Opioid Use form. - Follow up: Private Physician; When: As needed; Reason: Recheck today's complaints, Re-evaluation by your physician. - Problem is new. - Symptoms have improved. Signatures: Dispatcher [employer] EDMS Shaheed Demarco MD MD rn Roque, Raymond, RN RN rr5 Neisha Vizcarra RN RN ca1 Corrections: (The following items were deleted from the chart) 22:42 22:39 Reports for last 2 days has felt heart pounding and racing, seen here yesterday rn for chest pain, no acute findings so discharged, no further pain, but feels heart racing. Has had trouble with sinus tachycardia in past, put on metoprolol after negative cardiac w/u by Dr. Cates. Denies fever/sob/cough/vomiting/diarrhea/abd pain. No bleeding. . rn 23:04 22:45 08/20/2019 22:45 Discharged to Home. Impression: Tachycardia, unspecified; rr5 Dehydration. Condition is Stable. Forms are Medication Reconciliation Form, Thank You Letter, Antibiotic Education, Prescription Opioid Use. Follow up: Private Physician; When: As needed; Reason: Recheck today's complaints, Re-evaluation by your physician. Problem is new. Symptoms have improved. rn
[2019-08-20 23:32] VITALS: TEMP 97.6
[2019-08-21 00:31] VITALS: BP 128/93; O2SAT 100
--- NOTE | 2019-08-21 09:16 | EKG ---
Test Date: 2019-08-20 Test Time: 21:31:32 Drycleaner: RR MEASUREMENT RESULTS: Intervals: Rate: 110 CT: 168 QRSD: 76 QT: 336 QTc: 454 [place]: P: 43 CT: 168 QRS: 20 T: 36 INTERPRETIVE STATEMENTS: Sinus tachycardia Otherwise normal ECG Compared to ECG 08/18/2019 15:44:32 Sinus rhythm no longer present Electronically Signed On 08-21-19 09:15:40 CDT by Casey Cates
== END 2019-08-20 23:04 | disposition home or self-care (01) ==
LOC: ER 21:16
DX: E86.0 Dehydration (principal); I10 Essential (primary) hypertension; F17.210 Nicotine dependence, cigarettes, uncomplicated; Z88.5 Allergy status to narcotic agent
CPT/HCPCS: 93005; 85025; 80048; 36415; 85379; 84443; 84484; 84439; 71045; 96360; 99284; J7030

== ENCOUNTER 2020-02-23 23:44 | Emergency (ER) | payer BC, OTHER ==
[2020-02-24] MEDS ORDERED: KETOROLAC 30 MG/ML INJ ONE (00:26)
[2020-02-24] MEDS ORDERED: ONDANSETRON 4 MG/2 ML VIAL ONE (00:26)
[2020-02-24] MEDS ORDERED: DIPHENHYDRAMINE 50 MG/ML VIAL ONE (00:26)
[2020-02-24] MEDS ORDERED: NA CHLORIDE 0.9% 1,000 ML ONE (00:27)
[2020-02-24] MEDS ORDERED: MORPHINE 2 MG/ML SYR ONE (01:17)
--- NOTE | 2020-02-24 01:53 | EDPHYS ---
Physician Documentation [facility] Name: Pauline Lowe Age: 44 yrs Sex: Female : 1975 Arrival Date: 02/23/2020 Time: 23:46 Bed 20 Private MD: ED Physician Hosea Valentino HPI: 02/23 06:43 This 44 yrs old Female presents to ER via Ambulatory with complaints of tw4 Nausea, Headache. 06:43 The patient presents to the emergency department with nausea, vomiting. Onset: The tw4 symptoms/episode began/occurred just prior to arrival, today. Possible causes: unknown. The symptoms are aggravated by nothing. The symptoms are alleviated by nothing. Associated signs and symptoms: Pertinent positives: nausea, vomiting. The patient has not experienced similar symptoms in the past. 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 - Social history:: Smoking status: Patient reports the use of cigarette tobacco products, smokes one pack cigarettes per day. Patient/guardian denies using alcohol, street drugs. ROS: 02/23 06:43 Constitutional: Negative for fever, chills, and weight loss, Eyes: Negative for injury, tw4 pain, redness, and discharge, Neck: Negative for injury, pain, and swelling, Cardiovascular: Negative for chest pain, palpitations, and edema, Respiratory: Negative for shortness of breath, cough, wheezing, and pleuritic chest pain, Back: Negative for injury and pain, MS/Extremity: Negative for injury and deformity, Skin: Negative for injury, rash, and discoloration. Abdomen/GI: Positive for abdominal pain, nausea and vomiting, nausea, vomiting, and diarrhea, nausea, vomiting, Negative for abdominal cramps, abdominal distension, anorexia, dysphagia. Neuro: Positive for headache, Negative for altered mental status, dizziness, gait disturbance, tinnitus, tremor, visual changes, weakness. Exam: 06:43 Constitutional: This is a well developed, well nourished patient who is awake, alert, tw4 and in no acute distress. Head/Face: Normocephalic, atraumatic. Eyes: Pupils equal round and reactive to light, extra-ocular motions intact. Lids and lashes normal. Conjunctiva and sclera are non-icteric and not injected. Cornea within normal limits. Periorbital areas with no swelling, redness, or edema. Chest/axilla: Normal chest wall appearance and motion. Nontender with no deformity. No lesions are appreciated. Cardiovascular: Regular rate and rhythm with a normal S1 and S2. No gallops, murmurs, or rubs. Normal PMI, no JVD. No pulse deficits. Respiratory: Lungs have equal breath sounds bilaterally, clear to auscultation and percussion. No rales, rhonchi or wheezes noted. No increased work of breathing, no retractions or nasal flaring. Abdomen/GI: Soft, non-tender, with normal bowel sounds. No distension or tympany. No guarding or rebound. No evidence of tenderness throughout. Back: No spinal tenderness. No costovertebral tenderness. Full range of motion. MS/ Extremity: Pulses equal, no cyanosis. Neurovascular intact. Full, normal range of motion. Neuro: Awake and alert, GCS 15, oriented to person, place, time, and situation. Cranial nerves II-XII grossly intact. Motor strength 5/5 in all extremities. Sensory grossly intact. Cerebellar exam normal. Normal gait. Vital Signs: 02/22 23:54 BP 171 / 97; Pulse 81; Resp 17; Temp 97; Pulse Ox 100% ; Weight 65.77 kg; Height 5 ft. tl1 2 in. (157.48 cm); Pain 10/10; 02/23 01:00 BP 148 / 99; Pulse 80; Resp 16; Pulse Ox 100% on R/A; jb4 02:00 BP 138 / 89; Pulse 76; Resp 16; Pulse Ox 98% on R/A; Pain 0/10; jb4 02/22 23:54 Body Mass Index 26.52 (65.77 kg, 157.48 cm) tl1 MDM: 00:03 Patient medically screened. tw4 06:43 Data reviewed: vital signs, nurses notes. Data interpreted: Pulse oximetry: tw4 Interpretation: normal. Counseling: I had a detailed discussion with the patient and/or guardian regarding: the historical points, exam findings, and any diagnostic results supporting the discharge/admit diagnosis. Administered Medications: 00:15 Drug: TORadol 30 mg Route: IVP; Site: right antecubital; jb4 01:07 Follow up: Response: No adverse reaction; Marked relief of symptoms jb4 00:15 Drug: Zofran (Ondansetron) 4 mg Route: IVP; Site: right antecubital; jb4 01:07 Follow up: Response: No adverse reaction; Marked relief of symptoms jb4 00:15 Drug: Benadryl 25 mg Route: IVP; Site: right antecubital; jb4 01:06 Follow up: Response: No adverse reaction; Marked relief of symptoms jb4 00:15 Drug: NS 0.9% 1000 ml Route: IV; Rate: 1 bolus; Site: right antecubital; jb4 01:00 Follow up: Response: No adverse reaction; IV Status: Completed infusion jb4 01:12 Drug: morphine 2 mg Route: IVP; Site: right antecubital; jb4 02:01 Follow up: Response: No adverse reaction; Marked relief of symptoms; Pain is decreased; jb4 RASS: Alert and Calm (0) Disposition: 02/24/20 01:52 Discharged to Home. Impression: Migraine. - Condition is Stable. - Discharge Instructions: Migraine Headache. - Prescriptions for Fiorinal 50- 325-40 mg Oral Capsule - take 1 capsule by ORAL route every 4 hours As needed - not to exceed 6 capsules per day; 20 capsule. Zofran 4 mg Oral Tablet - take 1 tablet by ORAL route every 12 hours As needed; 6 tablet. - Medication Reconciliation Form, Thank You Letter, Antibiotic Education, Prescription Opioid Use form. - Follow up: Private Physician; When: Upon discharge from the Emergency Department; Reason: Recheck today's complaints, Continuance of care, Re-evaluation by your physician. - Problem is new. - Symptoms have improved. Signatures: Leora Mace RN RN tl1 Aryan Whitney RN RN jb4 Hosea Valentino MD MD tw4 Corrections: (The following items were deleted from the chart) 02: 01:52 02/24/2020 01:52 Discharged to Home. Impression: Migraine. Condition is Stable. jb4 Forms are Medication Reconciliation Form, Thank You Letter, Antibiotic Education, Prescription Opioid Use. Follow up: Private Physician; When: Upon discharge from the Emergency Department; Reason: Recheck today's complaints, Continuance of care, Re-evaluation by your physician. Problem is new. Symptoms have improved. tw4 06:44 06:43 Constitutional: Negative for fever, chills, and weight loss, Eyes: Negative for tw4 injury, pain, redness, and discharge, Cardiovascular: Negative for chest pain, palpitations, and edema, Respiratory: Negative for shortness of breath, cough, wheezing, and pleuritic chest pain, Abdomen/GI: Negative for abdominal pain, nausea, vomiting, diarrhea, and constipation, Back: Negative for injury and pain, MS/Extremity: Negative for injury and deformity, Skin: Negative for injury, rash, and discoloration, Neuro: Negative for headache, weakness, numbness, tingling, and seizure, tw4
--- NOTE | 2020-02-24 01:53 | ER ---
Nurse's Notes [facility] Name: Pauline Lowe Age: 44 yrs Sex: Female : 1975 Arrival Date: 02/23/2020 Time: 23:46 Bed 20 Private MD: Diagnosis: Migraine Presentation: 02/22 23:54 Chief complaint: Patient states: c/o headache that started today with worsening pain tl1 tonight. c/o nausea and hypertension. Coronavirus screen: Client denies travel out of the [place] in the last 14 days. At this time, the client does not indicate any symptoms associated with coronavirus-19. Ebola Screen: Patient negative for fever greater than or equal to 101.5 degrees Fahrenheit, and additional compatible Ebola Virus Disease symptoms Patient denies exposure to infectious person. Patient denies travel to an Ebola-affected area in the 21 days before illness onset. Initial Sepsis Screen: Does the patient meet any 2 criteria? No. Patient's initial sepsis screen is negative. Does the patient have a suspected source of infection? No. Patient's initial sepsis screen is negative. Risk Assessment: Do you want to hurt yourself or someone else? Patient reports no desire to harm self or others. Onset of symptoms was February 23, 2020. 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 - Social history:: Smoking status: Patient reports the use of cigarette tobacco products, smokes one pack cigarettes per day. Patient/guardian denies using alcohol, street drugs. Screenin/02 00:15 Abuse screen: Denies threats or abuse. Nutritional screening: No deficits noted. jb4 Tuberculosis screening: No symptoms or risk factors identified. Fall Risk None identified. Assessment: 00:15 General: Appears in no apparent distress. uncomfortable, Behavior is calm, cooperative, jb4 appropriate for age. Pain: Complains of pain in headache Pain does not radiate. Pain currently is 10 out of 10 on a pain scale. Neuro: Level of Consciousness is awake, alert, obeys commands, Oriented to person, place, time, situation. Cardiovascular: Patient's skin is warm and dry. Respiratory: Airway is patent Respiratory effort is even, unlabored, Respiratory pattern is regular, symmetrical. GI: Abdomen is flat, non-distended, Reports nausea, Patient currently denies abdominal pain. : No signs and/or symptoms were reported regarding the genitourinary system. EENT: No signs and/or symptoms were reported regarding the EENT system. Derm: Skin is intact, Skin is pink, warm \T\ dry. Musculoskeletal: Circulation, motion, and sensation intact. Range of motion: intact in all extremities. 01:06 Reassessment: Patient appears in no apparent distress at this time. Patient and/or jb4 family updated on plan of care and expected duration. Pain level reassessed. Patient is alert, oriented x 3, equal unlabored respirations, skin warm/dry/pink. Patient states feeling better. Patient states symptoms have improved. 02:00 Reassessment: Patient appears in no apparent distress at this time. Patient and/or jb4 family updated on plan of care and expected duration. Pain level reassessed. Patient is alert, oriented x 3, equal unlabored respirations, skin warm/dry/pink. Patient denies pain at this time. Patient states feeling better. Patient states symptoms have improved. Vital Signs: 02/22 23:54 BP 171 / 97; Pulse 81; Resp 17; Temp 97; Pulse Ox 100% ; Weight 65.77 kg; Height 5 ft. tl1 2 in. (157.48 cm); Pain 10/10; 02/23 01:00 BP 148 / 99; Pulse 80; Resp 16; Pulse Ox 100% on R/A; jb4 02:00 BP 138 / 89; Pulse 76; Resp 16; Pulse Ox 98% on R/A; Pain 0/10; jb4 02/22 23:54 Body Mass Index 26.52 (65.77 kg, 157.48 cm) tl1 ED Course: 02/22 23:46 Patient arrived in ED. cl3 23:53 Aryan Whitney, RN is Primary Nurse. jb4 23:55 Triage completed. tl1 23:58 Arm band placed on right wrist. tl1 02 00:03 Hosea Valentino MD is Attending Physician. tw4 00:15 Patient has correct armband on for positive identification. Bed in low position. Call jb4 light in reach. Side rails up X 1. Pulse ox on. NIBP on. 02:00 No provider procedures requiring assistance completed. IV discontinued, intact, jb4 bleeding controlled, No redness/swelling at site. Pressure dressing applied. Administered Medications: 00:15 Drug: TORadol 30 mg Route: IVP; Site: right antecubital; jb4 01:07 Follow up: Response: No adverse reaction; Marked relief of symptoms jb4 00:15 Drug: Zofran (Ondansetron) 4 mg Route: IVP; Site: right antecubital; jb4 01:07 Follow up: Response: No adverse reaction; Marked relief of symptoms jb4 00:15 Drug: Benadryl 25 mg Route: IVP; Site: right antecubital; jb4 01:06 Follow up: Response: No adverse reaction; Marked relief of symptoms jb4 00:15 Drug: NS 0.9% 1000 ml Route: IV; Rate: 1 bolus; Site: right antecubital; jb4 01:00 Follow up: Response: No adverse reaction; IV Status: Completed infusion jb4 01:12 Drug: morphine 2 mg Route: IVP; Site: right antecubital; jb4 02:01 Follow up: Response: No adverse reaction; Marked relief of symptoms; Pain is decreased; jb4 RASS: Alert and Calm (0) Outcome: 01:52 Discharge ordered by . tw4 02:00 Discharged to home ambulatory. jb4 02:00 Condition: stable 02:00 Discharge instructions given to patient, Instructed on discharge instructions, follow up and referral plans. medication usage, Demonstrated understanding of instructions, follow-up care, medications, Prescriptions given X 2. 02:01 Patient left the ED. jb4 Signatures: Leora Mace RN RN tl1 Aryan Whitney RN RN jb4 Hosea Valentino MD MD tw4 Lulú Shaffer cl3
[2020-02-24 02:10] VITALS: TEMP 97
[2020-02-24 02:13] VITALS: BP 138/89; O2SAT 98
== END 2020-02-24 02:01 | disposition home or self-care (01) ==
LOC: ER 23:44
DX: G43.909 Migraine, unspecified, not intractable, without status migrainosus (principal); F17.210 Nicotine dependence, cigarettes, uncomplicated; Z88.6 Allergy status to analgesic agent
CPT/HCPCS: 96361; 96375; 96374; 99283; J1200; J2270; J7030; J2405

== ENCOUNTER 2024-01-22 14:42 | Emergency (ER) | payer SELFPAY ==
--- NOTE | 2024-01-22 15:56 | RAD REPORT ---
EXAM DESCRIPTION: CT - Head Brain Wo Cont - 01/22/2024 3:50 pm CLINICAL HISTORY: HEADACHE Headache, drowsiness, hypertension COMPARISON: No comparisons TECHNIQUE: All CT scans are performed using dose optimization technique as appropriate and may inclu de automated exposure control or mA/KV adjustment according to patient size. FINDINGS: No intracranial hemorrhage, hydrocephalus or extra-axial fluid collection.No areas of brai n edema or evidence of midline shift. The paranasal sinuses and mastoids are clear. The calvarium is intact. IMPRESSION: No acute intracranial abnormality.
[2024-01-22] MEDS ORDERED: KETOROLAC 30 MG/ML INJ ONE (16:11)
[2024-01-22] MEDS ORDERED: DIPHENHYDRAMINE 50 MG/ML VIAL ONE (16:11)
[2024-01-22] MEDS ORDERED: NA CHLORIDE 0.9% 1,000 ML ONE (16:11)
[2024-01-22 16:17] LABS: Absolute Eosinophils 0.1 K/uL (0-0.5); Absolute Lymphocytes (CBC) 1.9 K/uL (0.7-4.9); Absolute Monocytes 0.3 K/uL (0.1-1.3); Absolute Neutrophil 3.2 K/uL (1.8-8.0); Basophils % 0.6 % (0-1.3); Eosinophils % 1.5 % (0-4.4); Hemoglobin 13.3 g/dL (12.0-15.0); Lymphocytes % 34.4 % (15.3-44.8); MCH 30.2 pg (27.0-35.0); MCHC 34.2 g/dL (32.0-36.0); MCV 88.2 fL (80-100); MPV 7.7 fL (7.6-11.3); Monocytes % 5.3 % (3.3-12.3); Neutrophils % 58.2 % (41.7-73.7); Platelets 224 thou/uL (152-406); RBC Red Blood Cell Count 4.42 M/uL (3.86-4.86); Red Cell Distribution Width 13.4 % (12.1-15.2)
[2024-01-22 16:36] LABS: Anion Gap 6.4 mEq/L (5.0-15.0); Potassium 3.4 mEq/L (3.5-5.1); Troponin High Sensitivity 3.8 pg/mL (<58.9)
--- NOTE | 2024-01-22 16:42 | EDPHYS ---
Physician Documentation [facility] Name: Pauline Lowe Age: 48 yrs Sex: Female : 1975 Arrival Date: 01/22/2024 Time: 14:42 Bed 4 Private MD: ED Physician Maikel Cat HPI: 01/21 15:20 This 48 yrs old Female presents to ER via Ambulatory with complaints of High ec2 Blood Pressure. 15:20 Patient arrives today for evaluation of a headache. Reports she did have a headache ec2 throughout the day. Patient reports no specific alleviating or exacerbating factors. States that she water at home blood pressure cuff noted the pressure to be elevated and subsequently came to the ED because of elevated blood pressure readings. No history of hypertension. Patient reports that she had taken some tramadol for the headache pain. Some nausea, no vomiting.. 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 - Infectious Disease History:: Denies. - Social history:: Smoking status: Patient reports the use of cigarette tobacco products, smokes one pack cigarettes per day. ROS: 15:20 Constitutional: as per hpi ec2 Exam: 15:20 Constitutional: GEN: NAD Head: atraumatic Eyes: EOMI Ears: External ears are ec2 normal. CV: regular rate LUNGS: no respiratory distress ABD: non-distended SKIN: no evidence of rashes MSK: no evidence of trauma. Neuro: Cranial nerves II through XII intact, strength intact all 4 extremities, no pronator drift, normal sensation. Vital Signs: 15:14 BP 168 / 100; Pulse 71; Resp 16; Temp 98; Pulse Ox 99% ; Weight 57.15 kg; Height 5 ft. db 3 in. ; 16:17 Pulse 62; Resp 18; Pulse Ox 100% on R/A; Pain 8/10; ld1 16:32 BP 144 / 93; ec2 16:55 BP 146 / 79; Pulse 61; Resp 18; Pulse Ox 100% ; ld1 15:14 Body Mass Index 22.32 (57.15 kg, 160.02 cm) db 16:17 Pain Scale: Adult ld1 MDM: 14:55 Patient medically screened. ec2 15:21 Data reviewed: vital signs. ED course: Patient arrives today for evaluation of ec2 headache. Examination remarkable for neuro intact individuals otherwise in no acute distress. Will obtain lab work, CT imaging of the head. Differential diagnosis includes intracranial mass, anemia, electrolyte disturbances, dehydration.. 16:26 ED course: EKG independently reviewed and interpreted by me, shows normal sinus rhythm, ec2 rate of 57, no acute ST segment elevations, intervals are nonconcerning.. 16:41 ED course: Metabolic profile shows slight hypokalemia. Troponin within normal ranges. ec2 On reassessment patient with improvement in blood pressures. Will discharge home, instructed follow-up PCP. Return precautions given. . 01/21 15:20 Order name: Basic Metabolic Panel; Complete Time: 16:41 ec2 01/21 15:20 Order name: CBC with Diff; Complete Time: 16:33 ec2 01/21 15:20 Order name: Troponin HS; Complete Time: 16:41 ec2 01/21 15:21 Order name: CT Head Brain wo Cont; Complete Time: 16:00 ec2 01/21 15:20 Order name: EKG; Complete Time: 15:21 ec2 01/21 15:20 Order name: Cardiac monitoring; Complete Time: 16:17 ec2 01/21 15:20 Order name: EKG - Nurse/Tech; Complete Time: 16:17 ec2 01/21 15:20 Order name: IV Saline Lock; Complete Time: 16:17 ec2 01/21 15:20 Order name: Labs collected and sent; Complete Time: 16:17 ec2 01/21 15:20 Order name: O2 Per Protocol; Complete Time: 16: ec2 01/21 15:20 Order name: O2 Sat Monitoring; Complete Time: 16: ec2 Administered Medications: 16:17 Drug: NS 0.9% IV 1000 ml IV at 1 bolus Per protocol; 1000 mL bolus Route: IV; Rate: 1 ld1 bolus; Site: right antecubital; 16:57 Follow up: Response: No adverse reaction; IV Status: Completed infusion; IV Intake: ld1 1000ml 16:17 Drug: Ketorolac IVP 15 mg IVP once Route: IVP; Site: right antecubital; ld1 16:57 Follow up: Response: No adverse reaction ld1 16:17 Drug: Droperidol IVP 1.25 mg IVP once Route: IVP; Site: right antecubital; ld1 16:57 Follow up: Response: No adverse reaction ld1 16:17 Drug: diphenhydrAMINE IVP 12.5 mg IVP once Route: IVP; Site: right antecubital; ld1 16:57 Follow up: Response: No adverse reaction ld1 Disposition Summary: 01/22/24 16:42 Discharge Ordered Notes: Location: Home ec2 Condition: Stable ec2 Diagnosis - Headache ec2 - Essential (primary) hypertension ec2 - Hypokalemia ec2 Followup: ec2 - With: Private Physician - When: - Reason: Re-evaluation by your physician Discharge Instructions: - Discharge Summary Sheet ec2 - General Headache Without Cause ec2 Forms: - Medication Reconciliation Form ec2 - Antibiotic Education ec2 - Prescription Opioid Use ec2 - Patient Portal Instructions ec2 - Leadership Thank You Letter ec2 Prescriptions: - Compazine 10 mg Oral Tablet - take 1 tablet ORAL route every 8 hours As needed; 20 tablet; Refills: 0, ec2 Product Selection Permitted Signatures: Dispatcher [employer] Yanelis Mitchell RN RN ld1 Lucrecia Quintana RN RN db Maikel Cat MD MD ec2
--- NOTE | 2024-01-22 16:42 | ER ---
Nurse's Notes [facility] Name: Pauline Lowe Age: 48 yrs Sex: Female : 1975 Arrival Date: 01/22/2024 Time: 14:42 Bed 4 Private MD: Diagnosis: Headache;Essential (primary) hypertension;Hypokalemia Presentation: 01/21 15:14 Chief complaint: Patient states: HEADACHE AND HIGH BP. STARTED WITH HEADACHE TODAY AT db 12PM CHECKED BP AT HOME AND IT WAS 162/111. PT HAS HX OF HIGH BP DOES NOT TAKE MEDICATIONS NORMALLY IS CONTROLLED. Coronavirus screen: Client denies travel out of the [place] in the last 14 days. At this time, the client does not indicate any symptoms associated with coronavirus-19. Ebola Screen: Patient negative for fever greater than or equal to 101.5 degrees Fahrenheit, and additional compatible Ebola Virus Disease symptoms Patient denies exposure to infectious person. Patient denies travel to an Ebola-affected area in the 21 days before illness onset. No symptoms or risks identified at this time. Initial Sepsis Screen: Does the patient meet any 2 criteria? No. Patient's initial sepsis screen is negative. Does the patient have a suspected source of infection? No. Patient's initial sepsis screen is negative. Risk Assessment: Do you want to hurt yourself or someone else? Patient reports no desire to harm self or others. Onset of symptoms was January 22, 2024. 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 - Infectious Disease History:: Denies. - Social history:: Smoking status: Patient reports the use of cigarette tobacco products, smokes one pack cigarettes per day. Screenin:17 [facility] ED Fall Risk Assessment (Adult) History of falling in the last 3 months, ld1 including since admission No falls in past 3 months (0 pts) Confusion or Disorientation No (0 pts) Intoxicated or Sedated No (0 pts) Impaired Gait No (0 pts) Mobility Assist Device Used No (0 pt) Altered Elimination No (0 pt) Score/Fall Risk Level 0 - 2 = Low Risk Oriented to surroundings, Maintained a safe environment, Educated pt \T\ family on fall prevention, incl call for assistance when getting out of bed, Assessed \T\ reinforced patient's understanding of fall precautions, Provided non-skid footwear, Hourly rounding (assess needs \T\ fall precautionary measures) done, Used ambulatory aids as needed (educated on \T\ assisted with), Used gait belt as appropriate. Abuse screen: Denies threats or abuse. Denies injuries from another. Nutritional screening: No deficits noted. Tuberculosis screening: No symptoms or risk factors identified. Assessment: 16:17 General: Appears in no apparent distress. comfortable, Behavior is calm, cooperative, ld1 appropriate for age. Pain: Complains of pain in face Pain does not radiate. Pain currently is 8 out of 10 on a pain scale. Quality of pain is described as throbbing, Pain began suddenly, Is continuous. Neuro: Level of Consciousness is awake, alert, obeys commands, Oriented to person, place, time, situation, Reports headache frontal area. Cardiovascular: Capillary refill < 3 seconds Patient's skin is warm and dry. Rhythm is sinus rhythm. Respiratory: Airway is patent Respiratory effort is even, unlabored. GI: Abdomen is flat, non-distended. : No signs and/or symptoms were reported regarding the genitourinary system. EENT: No signs and/or symptoms were reported regarding the EENT system. Derm: No signs and/or symptoms reported regarding the dermatologic system. Musculoskeletal: No signs and/or symptoms reported regarding the musculoskeletal system. 16:55 Reassessment: Patient appears in no apparent distress at this time. No changes from ld1 previously documented assessment. Patient and/or family updated on plan of care and expected duration. Pain level reassessed. Patient is alert, oriented x 3, equal unlabored respirations, skin warm/dry/pink. Vital Signs: 15:14 BP 168 / 100; Pulse 71; Resp 16; Temp 98; Pulse Ox 99% ; Weight 57.15 kg; Height 5 ft. db 3 in. ; 16:17 Pulse 62; Resp 18; Pulse Ox 100% on R/A; Pain 8/10; ld1 16:32 BP 144 / 93; ec2 16:55 BP 146 / 79; Pulse 61; Resp 18; Pulse Ox 100% ; ld1 15:14 Body Mass Index 22.32 (57.15 kg, 160.02 cm) db 16:17 Pain Scale: Adult ld1 ED Course: 14:45 Patient arrived in ED. mg5 14:48 Maikel Cat MD is Attending Physician. ec2 15:15 Triage completed. db 15:16 Arm band placed on Patient placed. db 15:51 CT Head Brain wo Cont In Process Unspecified. EDMS 16:09 Basic Metabolic Panel Sent. mb9 16:17 Yanelis Devi, CLIFF is Primary Nurse. ld1 16:17 Patient has correct armband on for positive identification. Placed in gown. Bed in low ld1 position. Call light in reach. Side rails up X2. monitor and storage bin tender on. Pulse ox on. NIBP on. Door closed. Noise minimized. Warm blanket given. 16:17 EKG done, by ED staff, reviewed by Maikel Cat MD. Inserted saline lock: 20 gauge in mb9 right antecubital area, using aseptic technique. Blood collected. Flushed with 10 mL NS. 16:17 No provider procedures requiring assistance completed. ld1 16:55 Provided Education on: medication administration. ld1 16:57 IV discontinued, intact, bleeding controlled, No redness/swelling at site. ld1 Administered Medications: 16:17 Drug: NS 0.9% IV 1000 ml IV at 1 bolus Per protocol; 1000 mL bolus Route: IV; Rate: 1 ld1 bolus; Site: right antecubital; 16:57 Follow up: Response: No adverse reaction; IV Status: Completed infusion; IV Intake: ld1 1000ml 16:17 Drug: Ketorolac IVP 15 mg IVP once Route: IVP; Site: right antecubital; ld1 16:57 Follow up: Response: No adverse reaction ld1 16:17 Drug: Droperidol IVP 1.25 mg IVP once Route: IVP; Site: right antecubital; ld1 16:57 Follow up: Response: No adverse reaction ld1 16:17 Drug: diphenhydrAMINE IVP 12.5 mg IVP once Route: IVP; Site: right antecubital; ld1 16:57 Follow up: Response: No adverse reaction ld1 Medication: 16:17 VIS not applicable for this client. ld1 Intake: 16:57 IV: 1000ml; Total: 1000ml. ld1 Outcome: 16:42 Discharge ordered by . ec2 16:56 Discharged to home ambulatory, ld1 16:56 Condition: stable 16:56 Discharge instructions given to patient, Instructed on discharge instructions, follow up and referral plans. medication usage, Demonstrated understanding of instructions, follow-up care, medications, Prescriptions given X 1, 16:57 Patient left the ED. ld1 Signatures: Dispatcher [employer] EDYanelis Padilla RN RN ld1 Lucrecia Quintana RN RN Karol Espinoza RN RN mb9 Lizy Mcmahon mg5 Maikel Cat MD MD ec2 Corrections: (The following items were deleted from the chart) 15:20 15:14 Chief complaint: Patient states: HEADACHE AND HIGH BP. STARTED WITH HEADACHE db TODAY AT 12PM CHECKED BP AT HOME AND IT WAS 162/111 db
[2024-01-22 17:15] VITALS: TEMP 98
[2024-01-22 17:16] VITALS: O2SAT 100
[2024-01-22 17:19] VITALS: BP 146/79
--- NOTE | 2024-01-26 12:49 | EKG ---
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
== END 2024-01-22 16:57 | disposition home or self-care (01) ==
LOC: ER 14:42
DX: R51.9 Headache, unspecified (principal); I10 Essential (primary) hypertension; E87.6 Hypokalemia
CPT/HCPCS: 36415; 70450; 80048; 84484; 85025; 93005; 96361; 96374; 96375; 99285; J1200; J7030